=== PATIENT | male | born 1975 | race Caucasian/White ===

== ENCOUNTER 2022-01-04 22:05 | Emergency (ER) | payer SELFPAY ==
[2022-01-04] MEDS ORDERED: Morphine 4 MG/ML VIAL IM ONE (23:12)
[2022-01-04] MEDS ORDERED: Acetaminophen/oxyCODONE 325-5 MG Tab PO PRN (23:19)
== END 2022-01-05 02:20 | disposition home or self-care (01) ==
LOC: FB.ED 22:05
DX: S22.42XA Multiple fractures of ribs, left side, initial encounter for closed fracture (principal); S00.81XA Abrasion of other part of head, initial encounter; W01.0XXA Fall on same level from slipping, tripping and stumbling without subsequent striking against object, initial encounter
CPT/HCPCS: 70450; 70486; 71111; 99284; A9270; 99283